=== PATIENT | female | born 1960 | race Caucasian/White ===

== ENCOUNTER 2022-03-26 22:11 | Emergency (ER) | payer OTHER, SELFPAY ==
[2022-03-26 22:47] VITALS: BP 118/68; PULSE 82; RESP 18; TEMP 36.5; O2SAT 94; BMI 32.5
--- NOTE | 2022-03-26 23:01 | CRLHL7_ITS ---
For Patients: As a result of the Cures Act, medical imaging exams and procedure reports are released immediately into your electronic medical record. You may view this report before your referring provider. If you have questions, please contact your health care provider. INDICATION: Lower abdominal pain TECHNIQUE: CT Abdomen and pelvis with i.v. contrast. Coronal and sagittal reformats were obtained. CONTRAST: 99 mL Isovue 370 COMPARISON: None FINDINGS: Lower chest: Unremarkable. Liver: Unremarkable. Spleen: Unremarkable. Pancreas: Unremarkable. Gallbladder: Unremarkable. Kidney: Unremarkable. No kidney or ureteral stones or obstruction seen. Adrenal: There is a 1.2 cm right adrenal nodule present. Bowel: Diverticulosis with moderate wall thickening and mild surrounding inflammatory changes are present in the proximal sigmoid colon. The appendix is normal in appearance and size. Vascular: Unremarkable. Lymph: Unremarkable. Peritoneum: Unremarkable. No pneumoperitoneum is seen. Trace amount of ascites is present and is likely physiologic in origin. Pelvis: Unremarkable. Soft tissue: Unremarkable. Bone: Severe degenerative disc narrowing is present at L3-4 with mild retrolisthesis. IMPRESSIONS: 1. Diverticulosis with moderate wall thickening and mild surrounding inflammatory changes are present in the proximal sigmoid colon. These findings are consistent with acute diverticulitis. No adjacent peridiverticular abscess is seen. 2. There is a 1.2 cm right adrenal nodule present. Dictated by Jone Pennington MD @ 03/27/2022 12:32:40 AM Please note that all CT scans at this facility use dose modulation, iterative reconstruction, and/or weight-based dosing when appropriate to reduce radiation dose to as low as reasonably achievable. Dictated by: Jone Pennington MD @ 03/27/2022 00:32:48 (Electronically Signed)
[2022-03-26 23:45] LABS: Appearance Urine Clear (Clear); Basophils Absolute Auto 0.03 K/uL (0.00-0.30); Basophils Percent Auto 0.3 % (0.0-3.0); Bilirubin Urine Negative (Negative); Blood Urine Negative (Negative); Color Urine Yellow (Yellow); Eosinophils Absolute Auto 0.23 K/uL (0.00-0.50); Eosinophils Percent Auto 2.3 % (0.0-7.0); Glucose Urine Negative (Negative); Hematocrit 41.4 % (33.0-51.0); Hemoglobin* 13.9 gm/dL (12.0-16.0); Immature Granulocytes Abs Auto 0.01 K/uL (0.00-0.30); Immature Granulocytes Pct Auto 0.1 %; Ketones Urine 1+ (Negative); Leukocyte Esterase Urine 3+ (Negative); Lymphocytes Percent Auto 17.3 % (20-44); Mean Corpuscular HGB Conc 34 gm/dL (32-36); Mean Corpuscular Hemoglobin 31 pg (26-34); Mean Corpuscular Volume 94 fL (80-100); Monocytes Percent Auto 7.3 % (0.0-11.0); Neutrophils Percent Auto 72.7 % (42.0-72.0); Nitrite Urine Negative (Negative); Platelet Count* 245 K/uL (140-440); Protein Urine Negative (Negative); RDW Coefficient of Variation % 11.7 % (11.5-15.5); Red Blood Count 4.43 m/uL (4.00-5.20); Urobilinogen Urine 0.2 (0.2-1.0); White Blood Count* 10.11 K/uL (4.50-11.00)
--- NOTE | 2022-03-26 23:47 | ED.ABDPAIN ---
HPI - Abdominal Pain General Chief Complaint: Abdominal Pain Stated Complaint: abdominal pain Time Seen by Provider: 03/26/22 23:00 History of Present Illness HPI narrative: Pt is a 61 year old with a history of diveriticulitis with microperforation several years ago who presents with bilateral lower abd pain. The pain started this afternoon. No nausea or vomiting fever or chills. Pt has been having normal bowel movements. No recent travel. No chest pain or shortness of breath. Pt has been eating normally. No treatment prior to arrival. Pain is moderate. No worsening with movement. Related Data Home Medications Medication Instructions Recorded Confirmed atenolol 25 mg tablet 25 mg PO Q24H 03/26/22 03/26/22 lisinopril 20 mg tablet 20 mg PO DAILY 03/26/22 03/26/22 spironolactone 25 mg tablet 25 mg PO DAILY 03/26/22 03/26/22 Allergies Allergy/AdvReac Type Severity Reaction Status Date / Time hydrochlorothiazide AdvReac Mild drained K Verified 03/26/22 22:53 Review of Systems Status of ROS Reports: 10 or more systems reviewed and unremarkable except as noted in History and below [facility] Medical History Diverticulitis Hypertension Social History Smoking Status: Never smoker Do you use any of these nicotine containing products: None Second hand tobacco smoke exposure: No How often do you have a drink containing alcohol: 2-3 times a week How many standard drinks containing alcohol do you have on a typical day: 1 or 2 How often do you have six or more drinks on one occasion: Never AUDIT-C Alcohol total score: 3 Non-prescribed substance use: denies use Exam Narrative: Exam Narrative: EXAM GENERAL: Patient appears comfortable and well. EYES: No scleral icterus. ENT: Tympanic membranes and oropharynx normal. THYROID: no thyroid nodules or thyromegaly. LYMPH: No supraclavicular or cervical lymphadenopathy. SKIN: Visible skin seen during exam normal or with benign process only. EXT: No dependent lower extremity pedal edema. HEART: Regular rate and rhythm with no murmurs, rubs, or gallops. LUNGS: Clear to auscultation bilaterally with no crackles or wheezes. ABD: Soft, minimally tender to palpation PSYCH: Good eye contact, speech is not pressured. Const: Vital Signs, click to edit/add: Vital Signs - 24 hr 03/26/22 22:47 Temperature 97.7 F Pulse Rate [Right Pulse Oximeter] 82 Respiratory Rate 18 Blood Pressure [Ri ght Upper Arm] 118/68 Pulse Oximetry 94 Oxygen Delivery Me thod Room Air Course Course Hospital Course: Pt seen and examined. CBC, CMP, Amylase, UA, CT of abd and pelvis ordered Reevaluation(s) Reevaluation #1: Laboratory studies and CT reviewed by me showed diverticulitis with no other findins other than 1.2 cm adrenal nodule. Time: 00:45 Vital Signs Vital signs: Initial Vital Signs Temperature 97.7 F 03/26/22 22:47 Temperature Source Temporal Artery Scan 03/26/22 22:47 Pulse Rate 82 03/26/22 22:47 Respiratory Rate 18 03/26/22 22:47 Blood Pressure 118/68 03/26/22 22:47 Blood Pressure Mean 84 03/26/22 22:47 Blood Pressure Position Sitting 03/26/22 22:47 Pulse Oximetry 94 03/26/22 22:47 Oxygen Delivery Method 03/26/22 22:47 Vital Signs Temperature 97.7 F 03/26/22 22:47 Pulse Rate 82 03/26/22 22:47 Respiratory Rate 18 03/26/22 22:47 Blood Pressure 118/68 03/26/22 22:47 Pulse Oximetry 94 03/26/22 22:47 Oxygen Delivery Method 03/26/22 22:47 Temperature 97.7 F 03/26/22 22:47 Pulse Rate 82 03/26/22 22:47 Respiratory Rate 18 03/26/22 22:47 Blood Pressure 118/68 03/26/22 22:47 Pulse Oximetry 94 03/26/22 22:47 Oxygen Delivery Method 03/26/22 22:47 MDM - Abdominal Pain MDM Narrative Medical decision making narrative: Pt is a 62 year old woman with a history of diverticulitis who presents with abd pain. CT shows diverticulitis and a 1.2 cm adrenal nodule. Pt medically stable and will be treated as an outpt with oral augmentin with PCP follow up. Differential Diagnosis Differential diagnosis: Likely abdominal pain, acute appendicitis, calculus of kidney, constipation, diverticulitis, endometriosis, gastroenteritis, pancreatitis and small bowel obstruction Lab Data Labs: Lab Results 03/26/22 03/26/22 03/26/22 Range/Units 23:30 23:30 23:30 WBC 10.11 (4.50-11.00) K/uL RBC 4.43 (4.00-5.20) m/uL Hgb 13.9 (12.0-16.0) gm/dL Hct 41.4 (33.0-51.0) % MCV 94 (80-100) fL MCH 31 (26-34) pg MCHC 34 (32-36) gm/dL RDW Coeff of Bennie 11.7 (11.5-15.5) % Plt Count 245 (140-440) K/uL Neut % (Auto) 72.7 H (42.0-72.0) % Lymph % (Auto) 17.3 L (20-44) % Parke % (Auto) 7.3 (0.0-11.0) % Eos % (Auto) 2.3 (0.0-7.0) % Baso % (Auto) 0.3 (0.0-3.0) % Neut # (Auto) 7.30 H (1.7-7.0) K/uL Lymph # (Auto) 1.70 (0.90-2.90) K/uL Parke # (Auto) 0.70 (0.00-0.90) K/UL Eos # (Auto) 0.23 (0.00-0.50) K/uL Baso # (Auto) 0.03 (0.00-0.30) K/uL Abs Immat Gran (auto) 0.01 (0.00-0.30) K/uL Imm/Tot Granulo (auto) 0.1 % Sodium 139 (135-149) mmol/L Potassium 4.1 (3.6-5.1) mmol/L Chloride 103 (96-114) mmol/L Carbon Dioxide 28 (20-32) mmol/L BUN 15 (7-30) mg/dL Creatinine 0.6 (0.5-1.5) mg/dL Estimated Creat Clear 61.74 Estimated GFR 103 ml/min Glucose 102 (60-115) mg/dL Calcium 9.9 (8.4-10.6) mg/dL Total Bilirubin 1.0 (0.1-1.5) mg/dL AST 23 (12-35) U/L ALT 20 (4-35) U/L Alkaline Phosphatase 87 (40-150) U/L Total Protein 7.6 (6.0-8.3) g/dL Albumin 4.5 (3.3-5.0) g/dL Amylase 63 (18-89) U/L Urine Color Yellow (Yellow) Urine Appearance Clear (Clear) Urine pH 7.0 (5.0-8.5) Ur Specific [place] 1.010 (1.000-1.030) Urine Protein Negative (Negative) Urine Glucose (UA) Negative (Negative) Urine Ketones 1+ A (Negative) Urine Blood Negative (Negative) Urine Nitrite Negative (Negative) Urine Bilirubin Negative (Negative) Urine Urobilinogen 0.2 (0.2-1.0) Ur Leukocyte Esterase 3+ A (Negative) Urine RBC 0-2 (0-2) Urine WBC 10-25 A (0-5) Ur Squamous Epith Cells Few (None-Few) Urine Bacteria Moderate A (None) Discharge Plan Discharge Clinical Impression: Adrenal nodule, Diverticulitis Patient Disposition: Home, Self-Care Condition: Stable Instructions: Diverticulitis (ED) Additional Instructions: Augmentin as directed Primary care follow up in one week to discuss diverticulitis and adrenal nodule. Activity Level: No Restrictions Discharge Diet: Regular Prescriptions: No Action spironolactone 25 mg tablet 25 mg PO DAILY atenolol 25 mg tablet 25 mg PO Q24H lisinopril 20 mg tablet 20 mg PO DAILY Follow Up/Referrals: Ameena Guajardo APRN, SOCIAL MEDIA EDITOR [Primary Care Provider] - Stand Alone Forms: MyHealth Info Instructions
[2022-03-26 23:50] LABS: Slide Review Reflex No
[2022-03-26 23:52] LABS: Bacteria Urine Moderate; RBC Urine 0-2 (0-2); Squamous Epithelial Cell Urine Few (None-Few)
[2022-03-26 23:59] LABS: Albumin* 4.5 g/dL (3.3-5.0); Chloride* 103 mmol/L (96-114); Potassium* 4.1 mmol/L (3.6-5.1); Sodium* 139 mmol/L (135-149)
[2022-03-27 00:01] LABS: Amylase* 63 U/L (18-89); Carbon Dioxide* 28 mmol/L (20-32); Creatinine* 0.6 mg/dL (0.5-1.5); Est. Creatinine Clearance* 61.74; Estimated Glomerular Filt Rate 103 ml/min
[2022-03-27 00:02] LABS: Alanine Aminotransferase* 20 U/L (4-35); Alkaline Phosphatase* 87 U/L (40-150); Aspartate Amino Transferase* 23 U/L (12-35); Blood Urea Nitrogen* 15 mg/dL (7-30); Calcium* 9.9 mg/dL (8.4-10.6); Glucose* 102 mg/dL (60-115); Total Protein* 7.6 g/dL (6.0-8.3)
[2022-03-27 00:58] VITALS: BP 129/64; PULSE 72; O2SAT 96
== END 2022-03-27 00:59 | disposition home or self-care (01) ==
PROVIDERS: Emergency Provider Internal Medicine; PCP Nurse Practitioner Family
DX: E27.8 Other specified disorders of adrenal gland (principal); K57.92 Diverticulitis of intestine, part unspecified, without perforation or abscess without bleeding
CPT/HCPCS: 36415; 74177; 80053; 81003; 81015; 82150; 85025; 87086; 99283; 99284; Q9967

== ENCOUNTER 2022-08-08 15:27 | Outpatient (CLI) | payer OTHER, SELFPAY ==
--- NOTE | 2022-08-08 12:00 | CRLHL7_ITS ---
For Patients: As a result of the Century Cures Act, medical imaging exams and procedure reports are released immediately into your electronic medical record. You may view this report before your referring provider. If you have questions, please contact your health care provider. BILATERAL SCREENING MAMMOGRAM WITH COMPUTER-AIDED DETECTION TECHNIQUE: CC and MLO views were obtained. These mammographic images have been obtained using full-field digital technique. These mammographic images were interpreted with the benefit of computer-aided detection. COMPARISON FILM: 08/07/21, 07/18/20, 07/09/19. FINDINGS: The breasts are almost entirely fatty IMPRESSION: There is no radiographic evidence for malignancy. ASSESSMENT: BI-RADS Category 1: Negative RECOMMENDATION: Routine screening mammogram in 1 year. A lay language report of this examination will be provided to the patient. Hernesto Lawrence M.D. Diagnostic/Nuclear Medicine Radiologist [email or web address] NA/Dictated by: Hernesto Lawrence MD @ 08/09/2022 1:32:00 PM (Electronically Signed)
== END 2022-08-08 15:28 | disposition home or self-care (01) ==
LOC: MAMMO 15:28
PROVIDERS: PCP Nurse Practitioner Family; Visit Provider Nurse Practitioner Family
DX: Z12.31 Encounter for screening mammogram for malignant neoplasm of breast (principal)
CPT/HCPCS: 77063; 77067

== ENCOUNTER 2023-06-20 10:48 | Outpatient (CLI) | payer OTHER, SELFPAY | END 2023-06-20 10:49 | disposition home or self-care (01) | PROVIDERS: PCP Nurse Practitioner Family; Visit Provider Nurse Practitioner Family | DX: Z00.00 Encounter for general adult medical examination without abnormal findings (principal); I10 Essential (primary) hypertension; E04.1 Nontoxic single thyroid nodule; Z13.6 Encounter for screening for cardiovascular disorders; Z13.0 Encounter for screening for diseases of the blood and blood-forming organs and certain disorders involving the immune mechanism | CPT/HCPCS: 80053; 80061; 84443; 85025 ==

== ENCOUNTER 2023-08-11 14:49 | Outpatient (CLI) | payer OTHER, SELFPAY ==
--- NOTE | 2023-08-11 15:00 | MM_ITS ---
Patient: CRYSTAL AMBROSE Facility:?[facility] Patient ID:?[id number] Site Patient ID:?[id number]. Site :?[id number] Study:?XRay-Breast Bilateral 3D W/CAD-08/11/2023 3:14:59 PM Ordering Physician:Merary Final Report: BILATERAL SCREENING MAMMOGRAM WITH COMPUTER-AIDED DETECTION AND TOMOSYNTHESIS TECHNIQUE: CC and MLO views were obtained. These mammographic images have been obtained using full-field digital technique. These mammographic images were interpreted with the benefit of computer-aided detection. Breast Tomosynthesis was used in this interpretation. COMPARISON FILM: 08/08/22, 08/07/21, 07/18/20. FINDINGS: There are scattered areas of fibroglandular density IMPRESSION: There is no radiographic evidence for malignancy. ASSESSMENT: BI-RADS Category 1: Negative RECOMMENDATION: Routine screening mammogram in 1 year. A lay language report of this examination will be provided to the patient. Jairo Steele M.D. Diagnostic Radiologist [email or web address] Transcribed: 11:17 [email or web address]/Dictated by: Jairo Steele MD @ 08/12/2023 9:01:00 AM Signed by:?Jairo Steele MD @08/12/2023 12:07:27 PM (Electronic Signature)
== END 2023-08-11 14:50 | disposition home or self-care (01) ==
LOC: MAMMO 14:50
PROVIDERS: PCP Nurse Practitioner Family; Visit Provider Nurse Practitioner Family
DX: Z12.31 Encounter for screening mammogram for malignant neoplasm of breast (principal)
CPT/HCPCS: 77063; 77067

== ENCOUNTER 2024-06-24 08:19 | Outpatient (CLI) | payer OTHER, SELFPAY | END 2024-06-24 08:20 | disposition home or self-care (01) | PROVIDERS: PCP Nurse Practitioner Family; Visit Provider Nurse Practitioner Family | DX: I10 Essential (primary) hypertension (principal); Z13.0 Encounter for screening for diseases of the blood and blood-forming organs and certain disorders involving the immune mechanism; Z13.6 Encounter for screening for cardiovascular disorders; Z13.29 Encounter for screening for other suspected endocrine disorder | CPT/HCPCS: 80053; 80061; 84443; 85025 ==

== ENCOUNTER 2024-09-02 15:29 | Outpatient (CLI) | payer OTHER, SELFPAY ==
--- NOTE | 2024-09-02 15:40 | CRLHL7_ITS ---
For Patients: As a result of the Century Cures Act, medical imaging exams and procedure reports are released immediately into your electronic medical record. You may view this report before your referring provider. If you have questions, please contact your health care provider. INDICATION: BILATERAL SCREENING MAMMOGRAM, ASYMPTOMATIC 64 Y/O FEMALE COMPARISON: 08/11/23, 08/08/22, 08/07/21 TECHNIQUE: CC and MLO views were obtained. These mammographic images have been obtained using full-field digital technique. These mammographic images were interpreted with the benefit of computer aided detection and tomosynthesis. BREAST COMPOSITION: The breasts are almost entirely fatty. FINDINGS: No suspicious findings. ASSESSMENT: BI-RADS 1 Negative RECOMMENDATION: Annual screening mammogram. A lay language report of this examination will be provided to the patient. Dictated by: Jairo Steele MD @ 09/03/2024 12:36:48 (Electronically Signed)
== END 2024-09-02 15:30 | disposition home or self-care (01) ==
LOC: MAMMO 15:29
PROVIDERS: PCP Nurse Practitioner Family; Visit Provider Nurse Practitioner Family
DX: Z12.31 Encounter for screening mammogram for malignant neoplasm of breast (principal)
CPT/HCPCS: 77063; 77067